=== PATIENT | female | born 1985 | race African-American/Black ===

== ENCOUNTER 2018-08-12 09:34 | Emergency (ER) | payer SELFPAY ==
[~2018-08-12] VITALS: Ht 166.4 cm; Wt 86.9 kg
[2018-08-12 09:40] VITALS: BP 135/84
[2018-08-12] MEDS ORDERED: IBUPROFEN 600 MG TABLET. PO ONE (10:00)
--- NOTE | 2018-08-12 10:03 | PHYS DOC ---
Past Medical History Past Medical History: No Pertinent History Past Surgical History: No Surgical History Alcohol Use: None Drug Use: None Adult General Chief Complaint Chief Complaint: BACK PAIN OR INJURY HPI HPI 33-year-old female presents to ER via POV with complaints of right lower back pain which started last night around 6 PM. She denies any injury or falls. Patient states she has had urinary urgency and frequency in the past couple of days. She denies any fever, nausea or vomiting, or vaginal symptoms. LMP which she reports was regular she denies any vaginal concerns. Patient denies abdominal pain. She denies taking any aiuu-nld-uzcuwyi medications for pain. She denies pain radiates into rt buttock or LE. She denies numbness/ tingling or swelling in extremities. Review of Systems Review of Systems Constitutional: Denies fever or chills. Denies fatigue Respiratory: Denies cough or shortness of breath [] Cardiovascular: No additional information not addressed in HPI [] GI: Denies abdominal pain, nausea, vomiting, bloody stools or diarrhea [] : Denies dysuria or hematuria. Reports urinary urgency/frequency. Denies vaginal sxs Musculoskeletal: Denies joint pain. Reports rt lower back pain [] Integument: Denies rash or skin lesions [] Neurologic: Denies headache, focal weakness or sensory changes [] All other systems were reviewed and found to be within normal limits, except as documented in this note. Current Medications Current Medications Current Medications Medications (Trade) Dose Ordered Sig/Hortencia Start Time Stop Time Status Last Admin Dose Admin Ibuprofen (Motrin) 600 mg 1X ONCE 08/12/18 10:00 08/12/18 10:10 DC 08/12/18 10:10 600 MG Lidocaine (Lidoderm) 1 patch DAILY 08/12/18 11:00 Miscellaneous (Lidoderm Patch Removal) 1 ea QHS 08/12/18 21:00 Allergies Allergies Allergies Coded Allergies Type Severity Reaction Last Updated Verified No Known Drug Allergies 08/12/18 No Physical Exam Physical Exam Constitutional: Well developed, well nourished, no acute distress, non-toxic appearance. [] HENT: Normocephalic, atraumatic, oropharynx moist Eyes: Pupils equal, conjunctiva normal, no discharge. [] Neck: Normal range of motion, no tenderness, supple Cardiovascular: Heart rate regular rhythm, no murmur [] Lungs & Thorax: Bilateral breath sounds clear to auscultation. Resp. equal/ nonlabored Abdomen: Bowel sounds normal, soft, no tenderness Skin: Warm, dry, no erythema, no rash. [] Back: Tender on palp. rt lower back with CVA tenderness. No midline spinal tenderness. Full ROM of back. No lt side CVA tenderness Extremities: No tenderness, no cyanosis, no clubbing, ROM intact, no edema. 2+ dorsalis pedis/posterior tibial bilat. LEs. Steady unassisted gait Neurologic: Alert and oriented X 3, normal motor function, normal sensory function, no focal deficits noted. [] Psychologic: Affect normal, judgement normal, mood normal. [] Current Patient Data Vital Signs Vital Signs Date Time Temp Pulse Resp B/P (MAP) Pulse Ox O2 Delivery O2 Flow Rate FiO2 08/12/18 09:40 98.0 99 18 135/84 (101) 100 Room Air 98.0 Lab Values Laboratory Tests Test 08/12/18 10:00 08/12/18 10:02 Urine Collection Type Unknown Urine Color Yellow Urine Clarity Clear Urine pH 6.0 Urine Specific [place] 1.025 Urine Protein Negative mg/dL (NEG-TRACE) Urine Glucose (UA) Negative mg/dL (NEG) Urine Ketones (Stick) Negative mg/dL (NEG) Urine Blood Negative (NEG) Urine Nitrite Negative (NEG) Urine Bilirubin Negative (NEG) Urine Urobilinogen Dipstick 0.2 mg/dL (0.2 mg/dL) Urine Leukocyte Esterase Negative (NEG) Urine RBC 0 /HPF (0-2) Urine WBC 1-4 /HPF (0-4) Urine Squamous Epithelial Cells Mod /LPF Urine Bacteria Few /HPF (0-FEW) Urine Mucus Mod /LPF POC Urine HCG, Qualitative Hcg negative (Negative) EKG EKG [] Radiology/Procedures Radiology/Procedures [] Course & Med Decision Making Course & Med Decision Making Pertinent Labs reviewed. (See chart for details) 1025: Patient was evaluated in the ER for complaints of right lower back pain. UA was negative for infection and UCG was negative. Patient was provided with dose of ibuprofen and will have Lidoderm patch applied to right lower back where she was tender on palpation. Test results were discussed with patient along with discussion on possible muscle strain. Will provide patient with prescription for Robaxin patient on medication. Patient advised not to drink alcohol or drive while taking this medication. Educated on use of over-the- counter ibuprofen and/or Tylenol along with sports cream PRN. Educated on use of ice and heat compress to affected area. At time of discharge discussion patient is in no visible distress she's had steady unassisted gait while in the ER. She remains PMS intact and bilateral lower extremities. Education provided on signs and symptoms to return to ER. Discharge instructions were discussed. Patient to follow-up with primary care physician if symptoms persist or with any concerns. Dragon Disclaimer Dragon Disclaimer This electronic medical record was generated, in whole or in part, using a voice recognition dictation system. Departure Departure Impression: Primary Impression: Back pain Disposition: HOME, SELF-CARE Condition: STABLE Referrals: UNKNOWN PCP NAME (PCP) Patient Instructions: Back Pain, Adult Additional Instructions: Tylenol and ibuprofen as needed for pain as directed on container. Ice and heat compress application to affected area every 3-4 hours for 20-30 minutes at a time. Avoid direct ice contact on skin. Muscle/sports cream is another option for pain control as directed on container. Remove lidoderm patch in 12 hours- there are similar over the counter patches available- use as directed on container. If symptoms persist or with any concerns follow-up with your primary doctor for re-evaluation for further care and re-evaluation. Scripts Methocarbamol (ROBAXIN-750) 750 Mg Tablet 1 TAB PO BID PRN for PAIN, #10 TAB 0 Refills No driving or drinking alcohol while taking this medication Prov: SINTIA CHING APRN 08/12/18 SINTIA CHING APRN Aug 12, 2018 10:03
[2018-08-12 10:08] LABS: BILIRUBIN,URINE NEGATIVE (NEG); CLARITY,URINE CLEAR; COLOR,URINE YELLOW; NITRITE,URINE NEGATIVE (NEG); PROTEIN,URINE NEGATIVE (NEG-TRACE); UROBILINOGEN,URINE 0.2 mg/dL (0.2 mg/dL)
[2018-08-12 10:20] LABS: SQUAMOUS EPITHELIAL CELL,UR MOD /LPF
[2018-08-12 10:21] LABS: BACTERIA,URINE FEW /HPF (0-FEW); RBC,URINE 0 /HPF (0-2)
[2018-08-12] MEDS ORDERED: METH-38 PO (10:35)
[2018-08-12] MEDS ORDERED: LIDOCAINE (700MG/PATCH) PATCH. TD SCH (11:00)
[2018-08-12] MEDS ORDERED: PATCH REMOVAL. MC SCH (21:00)
== END 2018-08-12 10:40 | disposition home or self-care (01) ==
LOC: ER 09:34
DX: M54.5 Low back pain (principal); R39.15 Urgency of urination; R35.0 Frequency of micturition
CPT/HCPCS: 81001; 81025; 99283